=== PATIENT | female | born 1990 | race Caucasian/White ===

== ENCOUNTER 2016-03-02 23:50 | Emergency (ER) | payer BC ==
[2016-03-03] MEDS ORDERED: SODIUM CHLORIDE 0.9% (FLUSH) 10 ML SYG IV PRN (00:20)
--- NOTE | 2016-03-03 00:32 | ED.PDOC ---
History of Present Illness - General Chief Complaint: Abdominal Pain Stated Complaint: flank pain and n/v Time Seen by Provider: 03/03/16 00:12 Information Source: patient, RN notes reviewed, Vital Signs reviewed Exam Limitations: no limitations - History of Present Illness Initial Comments: Patient reports that about 9pm this evening she developed some RLQ pain with urinary urgency. Pain radiated up to her right flank and is associated with nausea and vomiting. + chills, no fever. Abdominal Pain Onset Location: RLQ, suprapubic Pain Radiation: flank - Right Quality: moderate, cramping, sharpness Timing/Duration: 1-3 hours Improving Factors: nothing Worsening Factors: nothing Associated Symptoms: nausea/vomiting Review of Systems - Review of Systems Constitutional: States: chills. Denies: diaphoresis, fever, malaise, weakness EENTM: States: no symptoms reported Respiratory: States: no symptoms reported Cardiology: States: no symptoms reported Gastrointestinal/Abdominal: States: see HPI, abdominal pain, nausea, vomiting. Denies: constipation, diarrhea Genitourinary: States: dysuria, frequency, pain Musculoskeletal: States: back pain - Right flank pain Skin: States: no symptoms reported Neurological: States: no symptoms reported Endocrine: States: no symptoms reported Family Medical History - Family History Mother Living Status: Still Living Hx Cardiac Disease: Yes - ID Physical Exam - Physical Exam General Appearance: Alert, Comfortable, No apparent distress, Well Developed, Well Groomed, Well Hydrated, Well Nourished Neck: non-tender, full range of motion, supple, normal inspection Respiratory: chest non-tender, lungs clear, normal breath sounds, no respiratory distress, no accessory muscle use Cardiovascular/Chest: regular rate, rhythm, no edema, no gallop, no JVD, no murmur Gastrointestinal/Abdominal: normal bowel sounds, soft, tenderness - suprapubic Back Exam: CVA tenderness (R) Extremity: normal range of motion, non-tender, normal inspection, no pedal edema Neurologic: no motor/sensory deficits, alert, normal mood/affect, oriented x 3 Skin Exam: normal color, warm/dry Lymphatic: no adenopathy Progress - Progress Progress: 03/03/16 01:29 Discussed results with patient. UA just showed blood but CT was read as either recently passed kidney stone or early pyelonephritis. Will treat imperically with antibiotics. - Results/Orders Results/Orders: Laboratory Tests 03/03/16 03/03/16 00:21 00:22 WBC 12.0 H RBC 5.17 Hgb 13.7 Hct 41.8 MCV 80.7 L MCH 26.6 L MCHC 32.9 L RDW 13.7 Plt Count 309 MPV 9.4 Absolute Neuts (auto) 7.80 H Absolute Lymphs (auto) 2.90 Absolute Monos (auto) 0.70 Absolute Eos (auto) 0.40 Absolute Basos (auto) 0.10 Neutrophils % 65.6 Lymphocytes % 24.3 Monocytes % 5.5 Eosinophils % 3.4 Basophils % 1.2 Sodium 137 Potassium 3.5 L Chloride 104 Carbon Dioxide 26 Anion Gap 10.5 L BUN 16 Creatinine 0.68 BUN/Creatinine Ratio 23.5 H Random Glucose 137 H Serum Osmolality 277.1 Calcium 9.2 Serum HCG, Qual Negative Urine Color Yellow Urine Appearance Clear Urine pH 5.0 Ur Specific Greenback >= 1.030 Urine Protein Negative Urine Glucose (UA) Negative Urine Ketones Trace Urine Blood Moderate H Urine Nitrite Negative Urine Bilirubin Negative Urine Urobilinogen 0.2 Ur Leukocyte Esterase Negative Urine RBC 1-3 Urine WBC 0-1 Ur Epithelial Cells 3-5 Urine Bacteria 1+ - EKG/XRAY/CT CT Ordered: Yes - Either recently passed stone or early pyelonephritis Departure - Departure Clinical Impression: Pyelonephritis Time of Disposition: :31 Disposition: Discharge to Home or Self Care Condition: Good Departure Forms: ED Discharge - Pt. Copy, Patient Portal Self Enrollment Instructions: Kidney Infection Diet: resume usual diet Prescriptions: Ciprofloxacin [Cipro] 500 mg PO BID #14 tab Home Medications: Ambulatory Orders Ciprofloxacin [Cipro] 500 mg PO BID #14 tab 03/03/16
[2016-03-03 00:34] VITALS: BP 121/84; TEMP 99.8; O2SAT 98
--- NOTE | 2016-03-03 01:27 | CT ---
EXAM DESCRIPTION: CT ABDOMEN PELVIS WITHOUT IV CONTRAST 03/03/2016 1:04 AM CLINICAL HISTORY: 26 y/o , F, Hematuria and R flank pain, r/o kidney stone COMPARISON: Pelvic ultrasound July 27, 2006 TECHNIQUE: Volumetric CT acquisition was performed through the abdomen and pelvis. Images in the axial and coronal planes were presented for interpretation FINDINGS: The visualized portions of the lung bases are clear. The cardiomediastinal structures are within normal limits. Within the upper abdomen, the liver and spleen are normal in size and morphology. The gallbladder is normal in morphology. The intra/extrahepatic biliary tree is normal in appearance. The pancreas and adrenal glands are normal. The right kidney is mildly enlarged with trace perinephric stranding. There are no right renal calculi or ureteral stones. The left kidney is normal in size in the left ureter is normal in course and caliber. There are no left renal calculi, distal obstructing stones, or evidence of hydronephrosis/hydroureter. The stomach and small intestines are within normal limits without evidence of bowel dilation or wall thickening. The appendix is surgically absent. The colon is stool filled and unremarkable. Within the pelvis, the bladder and rectum are normal. The uterus is normal in appearance. There are fluid-filled tubular structures in the bilateral adnexa best seen on axial image 71 measuring 2.2 cm in diameter on the right and 2.1 cm in diameter on the left. There are no pathologically enlarged inguinal, retroperitoneal, portacaval, or mesenteric lymph nodes. The soft tissue structures of the abdominal wall are normal. The visualized osseous structures are within normal limits for the patient's age. The abdominal aorta and its primary branches are normal in course and caliber. Limited evaluation of the venous structures demonstrates no gross abnormalities. IMPRESSION: 1. Right-sided periureteral and perinephric stranding with distension of the right renal pelvis in ureter, may represent recent stone passage versus right-sided pyelonephritis. 2. Fluid-filled tubular structures in the bilateral adnexa, further evaluation with pelvic ultrasound is recommended. This likely represents bilateral hydrosalpinx. Electronically signed by: Jun Mcknight MD 03/03/2016 01:25
[2016-03-03] MEDS ORDERED: CIPROFLOXACIN 500 MG TAB PO ONE (01:31)
== END 2016-03-03 01:48 | disposition home or self-care (01) ==
LOC: ER 23:50
DX: N12 Tubulo-interstitial nephritis, not specified as acute or chronic (principal); Z82.49 Family history of ischemic heart disease and other diseases of the circulatory system